=== PATIENT | male | born 1980 | race Two or more races ===

== ENCOUNTER 2023-07-24 14:08 | Outpatient (CLI) | payer OTHER, SELFPAY | END 2023-07-24 14:09 | disposition home or self-care (01) | PROVIDERS: PCP Family Medicine; Visit Provider Family Medicine | DX: Z01.818 Encounter for other preprocedural examination (principal) | CPT/HCPCS: 80048; 80061 ==

== ENCOUNTER 2023-09-03 09:29 | Day surgery (SDC) | payer OTHER, SELFPAY ==
[2023-09-03] VITALS (12 sets, daily range): BP systolic 112–133; BP diastolic 62–93; PULSE 62–80; RESP 14–20; TEMP 36.2–36.8; O2SAT 95–100; BMI 30.6
--- NOTE | 2023-09-03 10:42 | PM.GSPRC ---
Operative Note Pre-op diagnosis: Bilateral inguinal hernias Post-op diagnosis: Same Type of Procedure: Laparoscopic bilateral inguinal hernia repair with mesh Indications: The patient is a 43-year-old male with a symptomatic left inguinal hernia. He came in for evaluation was also found to have a small asymptomatic right inguinal hernia. After discussion of options he elected to proceed with bilateral hernia repair. Procedure Description: After discussing the risks and benefits of the procedure, the patient signed informed consent.? The operative site was marked and the patient was brought to the operating room and placed on the operating table in supine position.? Care was taken to pad the patient's pressure points.?? The patient was then intubated by anesthesia.?? The operative site was then prepped and draped in the usual sterile fashion.? A time-out was then performed. A curvilinear incision was made below the umbilicus. Dissection was carried down to subcutaneous tissue until the anterior rectus fascia was encountered. This was incised off the midline on the left. The rectus muscle fibers were then retracted exposing the posterior fascia. A port with a dissecting balloon was then introduced into the pre-preperitoneal space. This was inflated under direct vision. The balloon was deflated, removed, and a 10 mm working port was placed. The space was insufflated and a 10 mm 30-degree scope was then advanced into the space. Two 5 mm ports were placed in the midline under direct vision. Dissection began on the left side. Jake's ligament and the pubic bone were exposed medially. Following this, dissection was carried out laterally. A large indirect defect was noted. The sac was dissected free from the cord structures using a combination of sharp and blunt dissection. Once the sac was completely reduced, a piece of Bard 3DMax mesh for the appropriate side was placed into the abdomen. This was positioned with the marker pointed medially. A Tacker was used to attach the mesh medially at Jake's ligament and 1 tack laterally with care to avoid the epigastric vessels and stay above the inguinal ligament. Attention was turned to the opposite side where a indirect defect was noted and repair was completed in the same fashion. The hernia sac was small and there was a small cord lipoma as well. These were both reduced. Similarly a piece of large Bard 3DMax mesh was placed. The mesh did overlap in the midline. Once this was completed the sac was placed on top of the mesh and the preperitoneal space desufflated under direct vision to ensure the mesh laid flat. 10 mL of 0.5% Marcaine were instilled into the preperitoneal space through a port. The ports were removed. The fascia from the infraumbilical port was closed with 0 Vicryl. The skin incisions were closed with absorbable subcuticular suture. Sterile dressings were then applied. The scrotum was examined to ensure that both testicles were down. Instrument sponge and needle counts were correct at the end of the case. ? The patient was then woken and transported to the recovery area in stable condition. ? The patient tolerated the procedure well. Anesthesia: GETA Surgeon: Genie Lema MD Estimated blood loss (mL): 5 Condition: stable Disposition: PACU Date of procedure: 09/03/23
[2023-09-03] MEDS: CEFAZOLIN 2 GM INJ IVP (10:45)
--- NOTE | 2023-09-03 10:52 | W.ANESCHARGE ---
Anesthesia Charges Start Date/Time Anesthesia Start Date: 09/03/23 Anesthesia Start Time: 10:36 Stop Date/Time Anesthesia Stop Date: 09/03/23 Anesthesia Stop Time: 12:17
[2023-09-03] MEDS: BUPIVACAINE 0.25% 30 ML INJECTION (11:55)
[2023-09-03] MEDS: MEPERIDINE 25 MG/ML INJ 12.5 MG IVP (12:17)
--- NOTE | 2023-09-03 12:23 | W.ANESCHARGE ---
Anesthesia Charges Start Date/Time Anesthesia Start Date: 09/03/23 Anesthesia Start Time: 10:36 Stop Date/Time Anesthesia Stop Date: 09/03/23 Anesthesia Stop Time: 12:17
[2023-09-03] MEDS: LACTATED RINGERS 1000 ML 1,000 ML 100 ML IV (12:36)
[2023-09-03] MEDS: ACETAMINOPHEN 325 MG TABLET 650 MG PO (13:00)
[2023-09-03] MEDS: KETOROLAC 15 MG/ML inj IVP (13:01)
[2023-09-03] MEDS: hydrOXYzine pamoate 25 MG CAPSULE PO (14:02)
== END 2023-09-03 14:15 | disposition home or self-care (01) ==
PROVIDERS: PCP Family Medicine; Visit Provider Surgery
PROC: (CPT 49650; principal; 2023-09-03 10:45)
DX: K40.20 Bilateral inguinal hernia, without obstruction or gangrene, not specified as recurrent (principal)
CPT/HCPCS: 49650; 00830; 00860; A9270; C1781; J0330; J0665; J0690; J1100; J1885; J2175; J2250; J2405; J2704; J3010; J3490; J7120